=== PATIENT | male | born 1940 | race Caucasian/White ===

== ENCOUNTER 2017-03-04 16:42 | Emergency (ER) | payer MEDICARE, SELFPAY ==
[~2017-03-04] VITALS: Ht 162.6 cm; Wt 113.4 kg
[~2017-03-04 16:42] MED LIST: ADULT LOW DOSE81 MG PO; CLARITIN10 MG PO; CLARITIN5 MG PO; FLOVENT DISKUS50 MCG INH; LIPITOR20 MG PO; METOPROLOL SUCC50 MG PO; ONDANSETRON ODT4 MG SL; POTASSIUM GLUC500 MG PO; SYMBICORT 16010.2 GM INH; TRIAMCINOLONE A15 G1 TOP; VENTOLIN HFA18 GM INH; VITAMIN D31000 UNIT PO
[2017-03-04] MEDS ORDERED: NORCO 5-325 TA1 EACH PO (17:41)
== END 2017-03-04 18:00 | disposition home or self-care (01) ==
LOC: ED 16:42
DX: S80.12XA Contusion of left lower leg, initial encounter (principal); R60.0 Localized edema; J43.9 Emphysema, unspecified; W19.XXXA Unspecified fall, initial encounter; Z87.442 Personal history of urinary calculi; Z87.891 Personal history of nicotine dependence; Z79.899 Other long term (current) drug therapy; Z79.82 Long term (current) use of aspirin
CPT/HCPCS: 73560; 73610; 93971; 99284

== ENCOUNTER 2017-03-13 17:58 | Emergency (ER) | payer MEDICARE, SELFPAY ==
[~2017-03-13] VITALS: Ht 162.6 cm; Wt 113.4 kg
[~2017-03-13 17:58] MED LIST changes: +NORCO 5-325 TA1 EACH PO
== END 2017-03-13 20:35 | disposition home or self-care (01) ==
LOC: ED 17:58
DX: S80.12XA Contusion of left lower leg, initial encounter (principal); J44.9 Chronic obstructive pulmonary disease, unspecified; Z87.442 Personal history of urinary calculi; W01.0XXA Fall on same level from slipping, tripping and stumbling without subsequent striking against object, initial encounter
CPT/HCPCS: 93971; 99284

== ENCOUNTER 2017-11-19 13:34 | Emergency (ER) | payer MEDICARE ==
[~2017-11-19] VITALS: Ht 162.6 cm; Wt 113.4 kg
[2017-11-19] MEDS ORDERED: KETOROLAC TROME10 MG PO (15:48)
[2017-11-19] MEDS ORDERED: ZYLOPRIM300 MG PO (15:48)
--- NOTE | 2017-11-20 07:35 | EKG ---
[facility] [address] [facility] [place], [place] [address] Signed Normal sinus rhythm Low voltage QRS Inferior infarct , age undetermined Abnormal ECG No previous ECGs available Confirmed by HERNÁN JORDAN MD ([id number]) on 11/20/2017 7:35:01 AM Electronically Signed By: HERNÁN JORDAN MD 11/20/17 0735 PATIENT NAME: ANDRE CORRIGAN EMEKA Electrocardiogram DATE OF : 36 PHYSICIAN: HERNÁN JORDAN MD REPORT #: [id number] REPORT IS CONFIDENTIAL AND NOT TO BE RELEASED WITHOUT AUTHORIZATION
== END 2017-11-19 16:20 | disposition home or self-care (01) ==
LOC: ED 13:34
DX: M10.9 Gout, unspecified (principal); J44.9 Chronic obstructive pulmonary disease, unspecified; Z87.442 Personal history of urinary calculi; Z79.899 Other long term (current) drug therapy; Z79.82 Long term (current) use of aspirin
CPT/HCPCS: 71045; 80053; 83880; 84484; 84550; 85025; 93005; 93010; 96374; 96375; 99283; J1885

== ENCOUNTER 2019-09-03 09:27 | Emergency (ER) | payer MEDICARE ==
[~2019-09-03] VITALS: Ht 162.6 cm; Wt 113.4 kg
[~2019-09-03 09:27] MED LIST changes: +KETOROLAC TROME10 MG PO; +ZYLOPRIM300 MG PO
[2019-09-03] MEDS ORDERED: ZOFRAN4 MG PO (14:45)
== END 2019-09-03 15:04 | disposition home or self-care (01) ==
LOC: ED 09:27
DX: K52.9 Noninfective gastroenteritis and colitis, unspecified (principal); J44.9 Chronic obstructive pulmonary disease, unspecified; Z87.891 Personal history of nicotine dependence; Z79.899 Other long term (current) drug therapy; Z79.82 Long term (current) use of aspirin
CPT/HCPCS: 36415; 74177; 80053; 81001; 83605; 85025; 85610; 85730; 86850; 86900; 86901; 96361; 99284-25; J2405; J7030; Q9967